=== PATIENT | male | born 1985 | race American Indian/Alaskan Native ===

== ENCOUNTER 2017-06-30 12:37 | Emergency (ER) | payer MEDICAID, OTHER ==
[2017-06-30 12:44] VITALS: BMI 24.3
[2017-06-30 12:47] VITALS: RESP 18; TEMP 97.8
--- NOTE | 2017-06-30 13:55 | RAD ---
PROCEDURE: Right Wrist Radiographs. HISTORY: wrist injury COMPARISON: None. FINDINGS: BONES: Normal. No fracture. JOINTS: Normal. No dislocation. SOFT TISSUES: Normal. OTHER FINDINGS: None. IMPRESSION: Normal right wrist radiographs.
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
[2017-06-30 14:12] VITALS: BP 121/74; PULSE 68; O2SAT 99
== END 2017-06-30 14:38 | disposition home or self-care (01) ==
LOC: ED 12:37
DX: M25.531 Pain in right wrist (principal)

== ENCOUNTER 2018-03-03 10:51 | Emergency (ER) | payer MEDICAID, OTHER ==
[2018-03-03 11:06] VITALS: RESP 18; TEMP 98.9; O2SAT 100; BMI 25.1
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
--- NOTE | 2018-03-03 13:44 | RAD ---
Date of service: 03/03/2018 PROCEDURE: Right Ankle Radiographs. HISTORY: ankle pain, lateral aspect, injured 3 days ago COMPARISON: None available. FINDINGS: BONES: There is a large well corticated bony fragment inferior to the lateral malleolus measuring 10 mm in diameter. This is most likely a chronic injury. JOINTS: Normal. No osteoarthritis. Ankle mortise maintained. Talar dome intact SOFT TISSUES: Normal. OTHER FINDINGS: None. IMPRESSION: No acute findings.
[2018-03-03 14:18] VITALS: BP 137/88; PULSE 76
== END 2018-03-03 14:17 | disposition home or self-care (01) ==
LOC: ED 10:51
DX: M25.571 Pain in right ankle and joints of right foot (principal)
CPT/HCPCS: 73610; 96372; 99283; J1885

== ENCOUNTER 2018-09-07 10:45 | Emergency (ER) | payer OTHER ==
[2018-09-07 11:02] VITALS: BMI 24.3
[2018-09-07 11:20] VITALS: RESP 18
[2018-09-07] MEDS ORDERED: Sodium Chloride 0.9% 1,000 ML IV STA (11:37)
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
[2018-09-07 12:37] LABS: BASO # 0.02 K/mm3 (0.0-2.0); BASO % 0.4 % (0.0-3.0); EOS # 0.1 (0.0-0.7); EOS % 1.6 % (1.5-5.0); HEMOGLOBIN 14.6 g/dL (14.0-18.0); LYMPH # 2.5 (1.2-3.4); LYMPH % 50.9 % (22.0-35.0); MEAN CELL VOLUME 91.7 fl (80.0-105.0); MEAN CORPUSCULAR HGB CONC 33.8 g/dl (31.0-37.0); MEAN PLATELET VOLUME 9.5 fl (7.0-11.0); MONO # 0.3 (0.1-0.6); RBC 4.71 10^6/uL (3.5-6.1); RED CELL DISTRIBUTION WIDTH 12.4 % (11.5-14.5); WHITE BLOOD COUNT 4.9 10^3/uL (4.5-11.0)
--- NOTE | 2018-09-07 12:39 | RAD ---
Date of service: 09/07/2018 HISTORY: abd pain COMPARISON: No prior. TECHNIQUE: 1 view obtained. FINDINGS: LUNGS: No active pulmonary disease. PLEURA: No significant pleural effusion identified, no pneumothorax apparent. CARDIOVASCULAR: No aortic atherosclerotic calcification present. Normal cardiac size. No pulmonary vascular congestion. OSSEOUS STRUCTURES: No significant abnormalities. VISUALIZED UPPER ABDOMEN: Normal. OTHER FINDINGS: None. IMPRESSION: No active disease.
[2018-09-07 12:40] LABS: URINE BILIRUBIN NEGATIVE (NEGATIVE); URINE BLOOD NEGATIVE (NEGATIVE); URINE GLUCOSE (UA) NEGATIVE (NEGATIVE); URINE LEUKOCYTE ESTERASE NEGATIVE Leu/uL (NEGATIVE); URINE PROTEIN NEGATIVE mg/dL (<30 mg/dL)
[2018-09-07 12:41] LABS: ALB/GLOB RATIO 1.3 (1.1-1.8); ALBUMIN 4.4 g/dL (3.0-4.8); ALT/SGPT 15 U/L (7-56); AST/SGOT 27 U/L (17-59); BLOOD UREA NITROGEN 10 mg/dL (7-21); CALCIUM 9.4 mg/dL (8.4-10.5); GFR NON-AFRICAN AMERICAN > 60; LIPASE 30 U/L (23-300)
[2018-09-07] MEDS ORDERED: Iohexol 350 MG/100 ML VIAL ONE (12:43)
[2018-09-07 12:45] LABS: URINE COLOR YELLOW (YELLOW)
[2018-09-07 12:46] LABS: INR 1.17; PARTIAL THROMBOPLASTIN TIME 28.6 Seconds (26.9-38.3); PROTHROMBIN TIME 13.2 SECONDS (9.4-12.5); URINE APPEARANCE CLEAR (CLEAR)
--- NOTE | 2018-09-07 13:55 | CT ---
Date of service: 09/07/2018 PROCEDURE: CT Abdomen and Pelvis with contrast HISTORY: RLQ pain, r/o appendicitis, hernia COMPARISON: Not available TECHNIQUE: Contrast dose: 100 mL Omnipaque 350 Radiation dose: Total exam DLP = 297.99 mGy-cm. This CT exam was performed using one or more of the following dose reduction techniques: Automated exposure control, adjustment of the mA and/or kV according to patient size, and/or use of iterative reconstruction technique. FINDINGS: LOWER THORAX: Unremarkable. LIVER: Unremarkable. No gross lesion or ductal dilatation. GALLBLADDER AND BILE DUCTS: Unremarkable. PANCREAS: Unremarkable. No gross lesion or ductal dilatation. SPLEEN: Unremarkable. ADRENALS: Unremarkable. No mass. KIDNEYS AND URETERS: Unremarkable. No hydronephrosis. No solid mass. VASCULATURE: Unremarkable. No aortic aneurysm. No aortic atherosclerotic calcification or mural plaque present. BOWEL: Unremarkable. No obstruction. No gross mural thickening. APPENDIX: Normal appendix. PERITONEUM: Unremarkable. No free fluid. No free air. LYMPH NODES: Unremarkable. No enlarged lymph nodes. BLADDER: Unremarkable. REPRODUCTIVE: Normal prostate BONES: No acute fracture. OTHER FINDINGS: None. IMPRESSION: Unremarkable examination. No evidence of appendicitis or hernia.
[2018-09-07 14:08] VITALS: BP 131/91; PULSE 51; TEMP 97.8; O2SAT 100
== END 2018-09-07 14:08 | disposition home or self-care (01) ==
LOC: ED 10:45
DX: R10.31 Right lower quadrant pain (principal); S39.011A Strain of muscle, fascia and tendon of abdomen, initial encounter; X58.XXXA Exposure to other specified factors, initial encounter
CPT/HCPCS: 71045; 74177; 80053; 81003; 83690; 83735; 85025; 85610; 85730; 99284; J7030; Q9967